=== PATIENT | female | born 1985 | race Caucasian/White ===

== ENCOUNTER 2021-12-04 10:10 | Emergency (ER) | payer OTHER, SELFPAY ==
--- NOTE | 2021-12-04 10:45 | ED.URI ---
HPI - URI/Sore Throat General Chief Complaint: Upper Respiratory Symptoms Stated Complaint: Antibiotics not helping tonsil issue Time Seen by Provider: 12/04/21 10:37 History of Present Illness HPI Narrative: Patient is a healthy 36-year-old female presenting with sore throat ongoing for over 1 week. She lives in [facility]. She did have a mild sore throat she was previously put on clindamycin, she finish the whole course of antibiotics she then had some right ear pain and is now on a cephalosporin she has been on for 5 days and still has sore throat. She denies fever or chills. She thought she had some chest congestion. Overall feels okay but still has mild right-sided sore throat. She states that she was not swabbed for strep or COVID. Review of Systems Review of Systems Narrative: GENERAL: Denies chills,fever HEENT: See HPI RESPIRATORY: Denies dyspnea, cough, wheezing CARDIOVASCULAR: Denies chest pain, palpitations GASTROINTESTINAL: Denies nausea, vomiting MUSCULOSKELETAL: Denies extremity pain, injury SKIN: No rash, no laceration, no pruritus NEUROLOGIC: Denies weakness, dizziness, headache, numbness 8 point review of systems is negative except for those stated above and HPI Patient History Social History Smoking Status: Never smoker Exam Initial Vital Signs Initial Vital Signs: Vital Signs Temperature 97.8 F 12/04/21 10:46 Pulse Rate 76 12/04/21 10:46 Respiratory Rate 19 12/04/21 10:46 Blood Pressure 115/69 12/04/21 10:46 Pulse Oximetry 98 12/04/21 10:46 Oxygen Delivery Method 12/04/21 10:46 GENERAL: Well-appearing, well-nourished and in no acute distress. HEENT: Head atraumatic,EOMI, pupils reactive, face symmetric, moist mucous membranes EARS: Tympanic membranes visualized, no erythema or bulging, no hemotympanum PHARYNX: No erythema, no tonsillar exudate, no cervical lymphadenopathy CARDIOVASCULAR: Regular rate and rhythm without murmurs, rubs or gallops. RESPIRATORY: Breath sounds equal bilaterally, no wheezes rales or rhonchi. EXTREMITIES: Normal range of motion, no clubbing or edema. Neurovascularly intact NEUROLOGICAL: Alert and oriented x4. SKIN: Warm, dry, no laceration, no petechiae, no rashes or lesions. Course Orders Ordered: ED Orders 12/04/21 11:03 COVID19 -Nasal RAPID/Pre-Proc Stat Throat Culture Stat MDM - URI/Sore Throat Lab Data Labs: Lab Results 12/04/21 Range/Units 11:03 SARS-CoV-2 (PCR) Negative (Negative) Point of Care Testing Rapid Strep A Negative MDM Narrative Medical decision making narrative: Patient overall appears well. Throat exam is very unremarkable. She has already been on 2 rounds of antibiotics at this time her strep is negative for COVID is negative I see no need for any further antibiotics or intervention. Discharge Plan Departure Patient Disposition: Home Clinical Impression: Pharyngitis Instructions: DI for Pharyngitis/Tonsillopharyngitis -- Adult Activity Restrictions/Additional Instructions: *You have been diagnosed with sore throat *What to do: No need for any more antibiotics. COVID test is negative *Continue to take medications as directed *Follow up with your primary care provider in 2-3 days or call [phone] *Return to ER if you should have fever, shortness of breath, increased pain or any new, worsening or concerning symptoms Visit Report Forms: Patient Portal/API
[2021-12-04 10:46] VITALS: BP 115/69; PULSE 76; RESP 19; TEMP 36.6; O2SAT 98; BMI 24.7
[2021-12-04 12:13] LABS: COVID19 -Nasal RAPID Negative (Negative)
== END 2021-12-04 12:24 | disposition home or self-care (01) ==
PROVIDERS: Emergency Provider Emergency Medicine
DX: J02.9 Acute pharyngitis, unspecified (principal); Z20.822 Contact with and (suspected) exposure to COVID-19
CPT/HCPCS: 87070; 87635; 87880; 99282; C9803